=== PATIENT | male | born 1995 | race Caucasian/White ===

== ENCOUNTER 2018-05-10 09:07 | Emergency (ER) | payer MEDICAID ==
[~2018-05-10] VITALS: Ht 167.6 cm; Wt 150.1 kg
[2018-05-10 09:11] VITALS: BP_SYST 147
--- NOTE | 2018-05-10 09:14 | NUR ---
Pt placed to ER bed 05, report given to VICTORINO Rosales. Addendum: 05/10/18 at 0916 by [facility] TO BED 7
--- NOTE | 2018-05-10 09:24 | NUR ---
ER at bedside examining patient.
--- NOTE | 2018-05-10 09:37 | NUR ---
Patient given written and verbal discharge instructions and verbalizes understanding. ER MD Brown discussed with patient the results and treatment provided. Patient in stable condition. ID arm band removed. Rx of norco and amoxicillin given. Patient educated on pain management and to follow up with PMD. Pain Scale 1. Opportunity for questions provided and answered. Medication side effect fact sheet provided.
== END 2018-05-10 09:37 | disposition home or self-care (01) ==
LOC: SED 09:07
DX: H60.91 Unspecified otitis externa, right ear (principal); J45.909 Unspecified asthma, uncomplicated
CPT/HCPCS: 99283

== ENCOUNTER 2018-06-05 06:29 | Emergency (ER) | payer MEDICAID ==
[~2018-06-05] VITALS: Ht 167.6 cm; Wt 150.1 kg
[2018-06-05 06:35] VITALS: BP_SYST 150
[2018-06-05 07:32] LABS: BILIRUBIN,URINE NEGATIVE (NEGATIVE); BLOOD, URINE 2+ (NEGATIVE); CLARITY/URINE CLEAR (CLEAR); COLOR,URINE YELLOW (YELLOW); GLUCOSE,URINE NEGATIVE (NEGATIVE); KETONES,URINE NEGATIVE (NEGATIVE); LEUKOCYTE ESTERASE ,URINE 1+ (NEGATIVE); NITRITE, URINE NEGATIVE (NEGATIVE); PROTEIN URINE TRACE (NEGATIVE); UROBILINOGEN,URINE 0.2 (0.2-1.0)
[2018-06-05 07:40] LABS: BACTERIA,URINE MANY /HPF (None Seen); MUCUS,URINE None Seen /LPF (None Seen); RBC,URINE 0-3 /HPF (0-3)
[2018-06-05 08:48] LABS: HEMATOCRIT 44.7 % (36-54); HEMOGLOBIN 15.3 g/dL (14.0-18.0); MEAN CORPUSCULAR HEMOGLOBIN 29 pg (27-31); MEAN CORPUSCULAR HGB CONC 34 % (32-36); MEAN CORPUSCULAR VOLUME 83 fL (79.0-98.0); PLATELET COUNT (AUTO) 288 K/uL (130-430); RED BLOOD CELL COUNT(AUTO) 5.37 MIL/uL (4.2-6.2); RED CELL DISTRIBUTION WIDTH 12.5 % (9.0-15.0); WHITE BLOOD COUNT (AUTO) 8.3 K/uL (4.8-10.8)
[2018-06-05 08:52] LABS: CALCIUM 9.9 mg/dL (8.4-11.0); CREATININE 0.92 mg/dL (0.55-1.30)
[2018-06-05 09:03] LABS: ALBUMIN 4.2 g/dL (3.4-4.8); TOTAL BILIRUBIN 0.5 mg/dL (0.0-1.0)
[2018-06-05 09:14] LABS: ATYPICAL LYMPHOCYTES % 0 % (0-0); BAND % (MANUAL) 0 % (0-6); BASOPHILS % (MANUAL) 0 % (0-2); EOSINOPHILS % (MANUAL) 3 % (0-7); LYMPHOCYTES % (MANUAL) 36 % (20-46); MONOCYTES % (MANUAL) 11 % (0-11)
[2018-06-05 10:04] VITALS: BP_SYST 133
== END 2018-06-05 10:04 | disposition home or self-care (01) ==
LOC: SED 06:29
DX: K59.00 Constipation, unspecified (principal); N39.0 Urinary tract infection, site not specified; E66.9 Obesity, unspecified; J45.909 Unspecified asthma, uncomplicated; Z68.43 Body mass index [BMI] 50.0-59.9, adult
CPT/HCPCS: 36415; 80053; 81000-TC; 83690-TC; 85007; 85027; 87086; 87186-TC; 99285

== ENCOUNTER 2019-06-05 12:59 | Emergency (ER) | payer MEDICAID ==
[~2019-06-05] VITALS: Ht 167.6 cm; Wt 145.1 kg
[2019-06-05 13:20] VITALS: BP_SYST 153
--- NOTE | 2019-06-05 13:24 | NUR ---
Patient triaged and placed in waiting room. VSS and patient appears in no acute distress at this time. Accompanied by SELF, awaiting available bed, and MD notified of need for MSE.
[2019-06-05 14:35] LABS: BILIRUBIN,URINE 1+ (NEGATIVE); BLOOD, URINE 3+ (NEGATIVE); CLARITY/URINE HAZY (CLEAR); COLOR,URINE YELLOW (YELLOW); GLUCOSE,URINE NEGATIVE (NEGATIVE); KETONES,URINE NEGATIVE (NEGATIVE); LEUKOCYTE ESTERASE ,URINE 2+ (NEGATIVE); NITRITE, URINE NEGATIVE (NEGATIVE); PROTEIN URINE 2+ (NEGATIVE)
[2019-06-05 14:46] LABS: UROBILINOGEN,URINE >=8 (0.2-1.0)
[2019-06-05 14:47] LABS: RBC,URINE 20-50 /HPF (0-3)
[2019-06-05 14:51] LABS: BACTERIA,URINE MODERATE /HPF (None Seen); WBC,URINE 20-50 /HPF (0-3)
--- NOTE | 2019-06-05 14:53 | NUR ---
BROUGHT BACK TO BED #1 AND REPORT GIVEN TO DONNY
--- NOTE | 2019-06-05 15:00 | NUR ---
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
--- NOTE | 2019-06-05 15:01 | NUR ---
Pt is here for left testicle swelling for 1 day with flu like symptoms. Pt also c/o pain upon urination, and blood in urine, dark red. Ptc/o pain 7/10l denied nausea or vomiting.
[2019-06-05] MEDS ORDERED: IBUPROFEN 600 MG TABLET PO ONE (15:30)
--- NOTE | 2019-06-05 15:41 | NUR ---
Patient given written and verbal discharge instructions and verbalizes understanding. ER MD discussed with patient the results and treatment provided. Patient in stable condition. ID arm band removed. Rx of MOTRIN, PYRIDIUM, CPIRO given. Patient educated on pain management and to follow up with PMD. Pain Scale 0/10. Opportunity for questions provided and answered. Medication side effect fact sheet provided.
[2019-06-05 15:43] VITALS: BP_SYST 137
[2019-06-07 02:06] LABS: CHLAMYDIA TRACHOMATIS NAA Negative (Negative); NEISSERIA GONORRHOEAE NAA Negative (Negative)
== END 2019-06-05 15:41 | disposition home or self-care (01) ==
LOC: SED 12:59
DX: N45.1 Epididymitis (principal); N39.0 Urinary tract infection, site not specified; R03.0 Elevated blood-pressure reading, without diagnosis of hypertension; J45.909 Unspecified asthma, uncomplicated
CPT/HCPCS: 76870-TC; 81000-TC; 87086; 87186-TC; 87491; 87591; 99284

== ENCOUNTER 2019-07-01 12:15 | Emergency (ER) | payer MEDICAID ==
[~2019-07-01] VITALS: Ht 162.6 cm; Wt 143.3 kg
--- NOTE | 2019-07-01 12:20 | NUR ---
Patient to ER bed 03 to gown for evaluation. Side rails up.
[2019-07-01] MEDS ORDERED: IPRATROPIUM/ALBUTEROL SULFATE 3 ML AMPUL.NEB (DUONEB) INH ONE (12:30)
[2019-07-01 12:38] VITALS: BP_SYST 145
[2019-07-01 12:52] LABS: BASOPHILS % (AUTO) 0.5 % (0.0-2.0); EOSINOPHILS # (AUTO) 0.1 K/uL (0.0-0.4); EOSINOPHILS % (AUTO) 0.9 % (0.0-4.0); HEMATOCRIT 42.5 % (36-54); HEMOGLOBIN 14.6 g/dL (14.0-18.0); LYMPHOCYTES # (AUTO) 2.4 K/uL (1.0-5.5); LYMPHOCYTES % (AUTO) 27.2 % (20.5-51.5); MEAN CORPUSCULAR HEMOGLOBIN 29 pg (27-31); MEAN CORPUSCULAR HGB CONC 34 % (32-36); MEAN CORPUSCULAR VOLUME 84 fL (79.0-98.0); MONOCYTES # (AUTO) 0.8 K/uL (0.0-1.0); MONOCYTES % (AUTO) 8.7 % (1.7-9.3); NEUTROPHILS # (AUTO) 5.5 K/uL (1.8-7.7); NEUTROPHILS % (AUTO) 62.7 % (40.0-70.0); PLATELET COUNT (AUTO) 199 K/uL (130-430); RED BLOOD CELL COUNT(AUTO) 5.05 MIL/uL (4.2-6.2); WHITE BLOOD COUNT (AUTO) 8.7 K/uL (4.8-10.8)
--- NOTE | 2019-07-01 13:00 | NUR ---
Recieved patient alert, awake, oriented. cc of recurrent testicular pain. was treated a month ago with antibiotic therapy then yesterday pain was back. no s/s of distress. vital sign stable, afebrile.
--- NOTE | 2019-07-01 13:10 | NUR ---
ER VALDEMAR. kaylin Galvan at bedside examining patient.
[2019-07-01 13:15] LABS: CALCIUM 9.3 mg/dL (8.4-11.0); CREATININE 0.96 mg/dL (0.55-1.30)
[2019-07-01] MEDS ORDERED: KETOROLAC TROMETHAMINE 60 MG/2 ML VIAL IM ONE (13:15)
[2019-07-01 14:13] LABS: BILIRUBIN,URINE NEGATIVE (NEGATIVE); BLOOD, URINE 3+ (NEGATIVE); CLARITY/URINE CLOUDY (CLEAR); COLOR,URINE YELLOW (YELLOW); GLUCOSE,URINE NEGATIVE (NEGATIVE); KETONES,URINE NEGATIVE (NEGATIVE); LEUKOCYTE ESTERASE ,URINE 3+ (NEGATIVE); NITRITE, URINE NEGATIVE (NEGATIVE); PROTEIN URINE 1+ (NEGATIVE); UROBILINOGEN,URINE 0.2 (0.2-1.0)
[2019-07-01 14:29] LABS: BACTERIA,URINE MODERATE /HPF (None Seen); MUCUS,URINE 1+ /LPF (None Seen); WBC,URINE >100 /HPF (0-3)
[2019-07-01 15:10] VITALS: BP_SYST 145
--- NOTE | 2019-07-01 15:10 | NUR ---
Patient given written and verbal discharge instructions and verbalizes understanding. ER MD discussed with patient the results and treatment provided. Patient in stable condition. ID arm band removed. Rx of u;tram given. Patient educated on pain management and to follow up with PMD. Pain Scale 3. Opportunity for questions provided and answered. Medication side effect fact sheet provided.
== END 2019-07-01 15:10 | disposition home or self-care (01) ==
LOC: SED 12:15
DX: N45.1 Epididymitis (principal); N39.0 Urinary tract infection, site not specified; R03.0 Elevated blood-pressure reading, without diagnosis of hypertension
CPT/HCPCS: 36415; 74176; 76870; 80048; 81000; 85025; 87086; 87186; 96372; 99284; J1885

== ENCOUNTER 2022-11-21 00:20 | Emergency (ER) | payer MEDICAID ==
[~2022-11-21] VITALS: Ht 170.2 cm; Wt 152.4 kg
[2022-11-21 00:26] VITALS: BP_SYST 124
--- NOTE | 2022-11-21 00:26 | NUR ---
Triaged and placed patient back to the waiting room. No acute respiratory distress at this time. VSS. Informed patient to notify ED staff for any changes in condition or worsening of symptoms while waiting to be seen by a provider. Patient verbalized understanding.
--- NOTE | 2022-11-21 00:35 | NUR ---
Patient ambulated to ER bed 6 with a steady gait. Instructed to notify ED staff for any changes in condition or worsening of symptoms.
--- NOTE | 2022-11-21 00:40 | NUR ---
Pt BIB family to ED C/O covid symptoms that started tonight. he reports he had a pt that was covid positive that he was with all weekend and he has had covid before and this is what it feels like. he takes OTC meds at home without relief. he denies severe symptoms
[2022-11-21] MEDS ORDERED: IBUP-1969 PO (01:12)
[2022-11-21] MEDS ORDERED: D ME PO (01:12)
[2022-11-21 01:20] VITALS: BP_SYST 124
--- NOTE | 2022-11-21 01:20 | NUR ---
Patient given written and verbal discharge instructions and verbalizes understanding. ER MD discussed with patient the results and treatment provided. Patient in stable condition. ID arm band removed. Rx of Daytime Cold/Multi-Symp Gel Caps and Motrin given. Patient educated on pain management and to follow up with PMD. Pain Scale 0/10 Opportunity for questions provided and answered. Medication side effect fact sheet provided.
== END 2022-11-21 01:20 | disposition home or self-care (01) ==
LOC: SED 00:20
DX: U07.1 COVID-19 (principal); R05.9 Cough, unspecified; R09.81 Nasal congestion; R50.9 Fever, unspecified; J45.909 Unspecified asthma, uncomplicated; Z79.899 Other long term (current) drug therapy
CPT/HCPCS: 36415; 99283

== ENCOUNTER 2023-11-25 06:08 | Emergency (ER) | payer MEDICAID ==
[~2023-11-25] VITALS: Ht 170.2 cm; Wt 145.1 kg
[~2023-11-25 06:08] MED LIST: D ME PO; IBUP-1969 PO
[2023-11-25 06:30] VITALS: BP_SYST 125; PULSE 86; RESP 16; TEMP 97.4; O2SAT 98
[2023-11-25] MEDS ORDERED: KETO5DRO85 LEFT EYE (06:40)
[2023-11-25] MEDS ORDERED: OFLO5DRO6 LEFT EYE (06:51)
[2023-11-25 07:05] VITALS: BP_SYST 119; PULSE 69; RESP 18; TEMP 97.5; O2SAT 96
== END 2023-11-25 07:05 | disposition home or self-care (01) ==
LOC: SED 06:08
DX: S05.02XA Injury of conjunctiva and corneal abrasion without foreign body, left eye, initial encounter (principal); J45.909 Unspecified asthma, uncomplicated; Z79.899 Other long term (current) drug therapy; X58.XXXA Exposure to other specified factors, initial encounter; Y93.89 Activity, other specified; Y92.89 Other specified places as the place of occurrence of the external cause; Y99.8 Other external cause status
CPT/HCPCS: 99283